=== PATIENT | male | born 1955 | race Caucasian/White ===

== ENCOUNTER 2025-08-21 10:57 | Emergency (ER) | payer OTHER, MEDICAID ==
[~2025-08-21] VITALS: Ht 162.6 cm; Wt 77.0 kg
--- NOTE | 2025-08-21 11:10 | Physician Documentation ---
History of Present Illness Chief Complaint: See Chief Complaint Stated Complaint: ABD PAIN HPI Very pleasant 70-year-old male that presents to the emergency department for evaluation of jaundice and significant weight gain times 3-4 weeks. Patient reports that he presented to his primary care provider's office today primary care provider sent him over to the emergency department for an evaluation of his gallbladder. Patient denies fever chills diarrhea but does report some nausea prior to eating events. Patient reports he gets a little bit shaky and naus eated if he does not eat regularly. Reports that he did have an episode of nausea after eating last night but denies any abdominal pain at this time. 70-year-old male no pertinent medical history presenting for 1 month of intermittent abdominal pain 20 lb weight loss and jaundice. He also reports itching in the evenings. He initially thought his abdominal pain was related to lactose intolerance. He stopped drinking milk and dairy in his abdominal pain has resolved. He however does have persistent nausea. He also endorses having diarrhea over the last month as well as dark urine which has been ongoing. No no history of cancer. No alcohol use. Nonsmoker. No history of IV drug use Medication Reconciliation Allergies: Coded Allergies: No Known Allergies (Unverified , 08/21/25) Scheduled Acyclovir (Acyclovir), 1 CAP PO 5XD, (Reported) Gabapentin (Gabapentin), 1 TAB PO QID, (Reported) Review of Systems All Other Systems at this time: Reviewed and Negative Constitutional: Denies: fever Respiratory: Denies: cough, shortness of breath Cardiovascular: Denies: chest pain Gastrointestinal: Reports: abdomen distended, abdominal pain, nausea, diarrhea; Denies: vomiting, constipated, melena, hematemesis, hematochezia, rectal bleeding Genitourinary: Denies: burning, discharge, dysuria Neurological: Denies: headache Integumentary: Reports: itching; Denies: rash Physical Exam Vital Signs: Temperature: 98.5, Source: Temporal, Heart Rate: 53, Respiratory Rate: 18, BP: 169/111, Pulse Oximetry: 100, Weight: 77.000 Oxygen Flow Rate: 0 Physical Exam Well-appearing no acute distress Moist mucous membranes Pulmonary clear to auscultation bilaterally Cardiac no murmur Abdomen soft nontender positive hepatomegaly no guarding no rebound Skin jaundiced Neuro awake alert oriented Progress Results/Orders Reviewed/noted all lab results: Yes Results/Orders Vital Signs 08/21/25 11:01 Temp 98.5 Pulse 53 Resp 18 B/P (MAP) 169/111 Pulse Ox 100 O2 Flow Rate 0 Medical Decision Making Additional information obtaine: N/A Findings Patient presents with painless jaundice. No leukocytosis no fever no tenderness on exam. Admitted to the hospitalist for further management Differential Dx:Considerations: AAA, Angina/NH, Other, N/A Departure Disposition: ADMITTED INPATIENT Admitted to Inpatient Unit: to hospitalist Impression: Primary Impression: Painless jaundice Referrals: NO PRIMARY CARE PROVIDER (PCP) Signature Scribe Signature: na Attestation: DWIGHT Arana Aug 21, 2025 11:10 JADEN PAUL MD Aug 21, 2025 13:05
[2025-08-21 12:10] LABS: MEAN PLATELET VOLUME 10.3 FL (7.4-10.4); RED CELL DISTRIBUTION WIDTH 15.2 % (11.5-14.5)
[2025-08-21 12:23] LABS: CREATININE 0.53 MG/DL (0.60-1.10); TOTAL CARBON DIOXIDE 24.2 MMOL/L (24-32); eCRCL 112 ML/MIN; eGFR > 90 ML/MIN
[2025-08-21 12:41] LABS: LEUKOCYTE ESTERASE ,URINE NEGATIVE (Neg); NITRITES, URINE NEGATIVE (Neg); OCCULT BLOOD,URINE NEGATIVE (Neg)
[2025-08-21 12:56] LABS: UA COLLECTION TYPE NON-SPECIFIED
[2025-08-21 12:57] LABS: CAL OXALATE CRYSTALS 2+ /HPF (NEGATIVE); MUCUS STRANDS NONE SEEN /LPF (Neg); SQUAMOUS EPITHELIAL CELL,UR NONE SEEN /LPF (FEW)
[2025-08-21 13:40] LABS: EOSINOPHILS % (MANUAL) 5.0 % (0-6); LYMPHOCYTES % (MANUAL) 7.0 % (21-51); MONOCYTES % (MANUAL) 13.0 % (2-12); NEUTROPHILS % (MANUAL) 75.0 % (42-75)
[2025-08-21 13:41] LABS: PLATELET ESTIMATE NORMAL
--- NOTE | 2025-08-21 14:13 | RADIOLOGY REPORT ---
Procedure: US ULTRASOUND OF ABDOMEN [facility] Study Date and Requested Time: 08/21/2025 01:37 PM History: abdominal pain Comparison: None Technique: Multiple high resolution stallworth-scale images obtained of the right upper quadrant of the abdomen with color Doppler for evaluation of blood flow and vascularity as indicated. Findings: Liver measures 19 cmin length, with homogenous echotexture and normal contours. No evidence of focal hepatic lesions. Mild dilatation of the intrahepatic ducts. Common bile duct is distended measuring up to 1.8 cm. Sludge within the gallbladder. Otherwise, The gallbladder is unremarkable with no evidence of abnormal wall thickening, gallstones, or pericholecystic fluid. Negative sonographic Hyde's sign. Pancreas is obscured by bowel gas Right kidney measures 10.8 cm in length, with normal contours, echotexture, and cortical thickness. No evidence of calculi, cystic or solid renal lesions. Mild pelviectasis. Partially visualized inferior vena cava unremarkable. Impression: Intra and extrahepatic biliary ductal dilatation with the common bile duct measuring up to 1.8 cm. MRCP is recommended for further evaluation. Sludge within the gallbladder. Otherwise, the gallbladder is unremarkable. Mild hepatomegaly Pancreas is obscured by bowel gas.
[2025-08-21] MEDS ORDERED: GABA-1405 PO (15:07)
[2025-08-21] MEDS ORDERED: ACYC-53 PO (15:07)
--- NOTE | 2025-08-21 21:11 | RADIOLOGY REPORT ---
CLINICAL HISTORY: Increased bilirubin, duct dilatation TECHNIQUE: MRI and MRCP of the abdomen was performed without gadolinium. 3D reconstructed images were created under concurrent radiologist supervision and archived on the PACS system. COMPARISON: None FINDINGS: The spleen, adrenal glands, and kidneys are unremarkable. There is severe intrahepatic and extrahepatic biliary ductal dilatation with the common duct measuring up to 14 mm. The gallbladder is distended with small amount of sludge and mild wall thickening. There is diffuse pancreatic ductal dilatation measuring 9 mm. There is a cutoff of the common duct and pancreatic duct at the pancreatic head, where it masses suspected. The abdominal aorta is normal course and caliber. No enlarged lymph node is seen. No free fluid is present. IMPRESSION: Severe pancreatic and biliary ductal dilatation with distention of the gallbladder. The pancreatic and biliary ducts abruptly cut off at the pancreatic head, where a malignant mass is suspected. This study is not designed to adequately assess for a mass. Further workup is recommended. Recommend pancrea tic CT or MRI with and without IV contrast for further evaluation. Another option if available is EUS with tissue sampling.
[2025-08-22] MEDS: CefTRIAXone/D5W-Rocephin 1gm 50 ML IV ONE (05:54)
[2025-08-22] MEDS: ondansetron/PF 4mg/2ml inj IV ONE ×2 (08:11→17:37)
[2025-08-22 10:28] VITALS: TEMP 98.1
[2025-08-22] MEDS: HYDROcodone/acetaminophen 5mg/325mg tablet PO ONE (14:35)
[2025-08-22 16:52] VITALS: BP 148/105
[2025-08-22 18:16] VITALS: PULSE 63; RESP 15; O2SAT 98
== END 2025-08-22 18:15 | disposition critical access hospital (66) ==
LOC: ER 10:58 → ED HOLD 14:16 → UNDOADMIN 14:16 → UNDODISIN 18:30 → ER 08-22 18:15
DX: R17 Unspecified jaundice (principal); Z79.899 Other long term (current) drug therapy
CPT/HCPCS: 36415; 74181; 76700; 80053; 81001; 83690; 85007; 85025; 96365; 96375; 96376; 99285; J0696; J1200; J2405; G0378

== ENCOUNTER 2025-08-31 11:29 | Emergency (ER) | payer OTHER, MEDICAID ==
[~2025-08-31] VITALS: Ht 162.6 cm; Wt 75.8 kg
[~2025-08-31 11:29] MED LIST: ACYC-53 PO; GABA-1405 PO
--- NOTE | 2025-08-31 12:14 | ELECTROCARDIOGRAPH REPORT ---
[facility] Test Date: 2025-08-31 Test Time: 12:10:52 Pat Name: DANIEL GAMBOA Department: [facility]- Patient ID: [facility]-[id number] Room: Gender: M Cloth Worker: : 1955 Requested By: DANIEL GUZMÁN Order Number: [id number] Reading MD: Dr. PACO Busch Measurements Intervals [place] Rate: 75 P: 44 OR: 138 QRS: -14 QRSD: 107 T: 26 QT: 385 QTc: 430 Interpretive Statements Sinus rhythm Low voltage, precordial leads RSR' in V1 or V2, right VCD or RVH Electronically Signed On 08-31-2025 19:17:[address] PACO Busch Please click the below link to view image of tracing.
[2025-08-31 12:16] LABS: MEAN PLATELET VOLUME 8.7 FL (7.4-10.4); RED CELL DISTRIBUTION WIDTH 13.8 % (11.5-14.5)
--- NOTE | 2025-08-31 12:25 | RADIOLOGY REPORT ---
EXAM: DI CHEST,SINGLE VIEW HISTORY: CP COMPARISON: None TECHNIQUE: Portable upright AP view of the chest was performed. FINDINGS: There is mild scarring in the left lung base. No other infiltrates, pneumothorax, or pulmonary edema. The heart is borderline enlarged. There is an old fracture of the left clavicle. There is cystic changes of the left humeral head. There is thoracic degenerative disc disease. IMPRESSION: No acute intrathoracic process.
[2025-08-31 12:32] LABS: CREATININE 1.05 MG/DL (0.60-1.10); TOTAL CARBON DIOXIDE 28.5 MMOL/L (24-32); eCRCL 56 ML/MIN; eGFR 70 ML/MIN
--- NOTE | 2025-08-31 12:37 | Physician Documentation ---
History of Present Illness ~ Chief Complaint: Hypotension Stated Complaint: HYPOTENSION Time Seen by MD: 11:58 Source: patient, family Mode of Arrival: POV Exam Limitations: no limitations HPI 70-year-old male who is here due to generalized weakness in reporting that yesterday around 3:00 p.m. in the afternoon when he sat up after taking a nap that he "was slurring his words and just appeared really tired." Patient then reportedly laid back down yesterday and slept until 7pm. He is on percocet since having a stent placed due to a mass that he was informed yesterday is pancreatic cancer. The stent was placed down at [facility]. He has been on Percocet several times in the past for different things in his never had any drowsiness or side effects. He states his primary care provider called him this morning and informed him that his sodium was low on labs that were done two days ago. Patient is not on any diuretic. He states he has been eating and drinking a lot more than he has been since having the sent place as he states I actually feel a lot better since I have gotten this stent place. He does have some abdominal pain which he attributes to the stent but states this is gradually improving. Medication Reconciliation Allergies: Coded Allergies: latex (Verified Allergy, Mild, 08/31/25) Scheduled Acyclovir (Acyclovir), 1 CAP PO 5XD, (Reported) Gabapentin (Gabapentin), 1 TAB PO QID, (Reported) Past Medical History Past Medical History: *CANCER* (pancreatic cancer) Past Surgical History: other (pancreatic stent ) Lives with: Spouse Lives In: Home Review of Systems All Other Systems at this time: Reviewed and Negative Physical Exam Vital Signs: Temperature: 97.6, Heart Rate: 76, Respiratory Rate: 16, BP: 97/60, Pulse Oximetry: 99, Weight: 75.800 Oxygen Flow Rate: 0 Physical Exam GENERAL: Alert, no acute distress. HEENT: NCAT, EOMI, PERRL, normal oropharynx, moist oral mucosa. NECK: Supple, trachea midline. CARDIAC: Regular rate and rhythm, no murmurs, rubs, or gallops. Equal distal pulses. No lower extremity edema, cap refill less than 2 seconds. RESPIRATORY: Equal breath sounds, clear to auscultation bilaterally, no respiratory distress. GASTROINTESTINAL: Non distended, soft, nontender, No guarding or rebound. MUSCULOSKELETAL: Normal range of motion, nontender, no swelling. Normal gait. NEUROLOGICAL: Awake, alert, and oriented x 3. cn 2-12 intact. SKIN: Warm/dry, +jaundice. PSYCH: Alert and appropriate. Affect congruent with mood. Speech is clear. Good eye contact. Progress Results/Orders Results/Orders Orders - SHIELA NIX Ct Head (08/31/25 13:39) Culture Blood (08/31/25 12:28) Completed Orders - SHIELA NIX Normal Saline 1000ml (0.9% Sodium Chlori (08/31/25 12:30) Ct Head (08/31/25 13:39) Ammonia (08/31/25 12:28) Procalcitonin (08/31/25 12:28) LA (08/31/25 13:13) Normal Saline 1000ml (0.9% Sodium Chlori (08/31/25 14:35) Vital Signs 08/31/25 08/31/25 08/31/25 08/31/25 11:38 12:09 12:13 13:07 Temp 97.6 Pulse 76 77 Resp 18 16 20 B/P (MAP) 97/60 97/62 (74) Pulse Ox 99 99 97 O2 Delivery Room Air* O2 Flow Rate 0 0 0 FiO2 08/31/25 16:05 Temp 98.9 Pulse 85 Resp 27 B/P (MAP) 110/60 Pulse Ox 99 Laboratory Tests Test 08/31/25 11:59 08/31/25 12:03 08/31/25 13:16 White Blood Count 15.7 H Red Blood Count 3.25 L Hemoglobin 10.8 L Hematocrit 32.0 L Mean Corpuscular Volume 98.4 H Mean Corpuscular Hemoglobin 33.3 H Mean Corpuscular Hemoglobin Concent 33.9 Red Cell Distribution Width 13.8 Platelet Count 332 Mean Platelet Volume 8.7 Neutrophils (%) (Auto) 90.3 H Lymphocytes (%) (Auto) 3.8 L Monocytes (%) (Auto) 5.8 Eosinophils (%) (Auto) 0 Basophils (%) (Auto) 0.1 Neutrophils # (Auto) 14.1 H Lymphocytes # (Auto) 0.6 L Monocytes # (Auto) 0.9 Eosinophils # (Auto) 0.0 Basophils # (Auto) 0.0 CBC Comment Sodium Level 131 L Potassium Level 4.1 Chloride Level 95 L Carbon Dioxide Level 28.5 Anion Gap 8 Blood Urea Nitrogen 17 Creatinine 1.05 Estimated GFR/1.73 m2 70 BUN/Creatinine Ratio 16.2 Glucose Level 106 H Calcium Level 8.8 Total Bilirubin 8.0 H Direct Bilirubin 6.7 H Aspartate Amino Transf (AST/SGOT) 243 H Alanine Aminotransferase (ALT/SGPT) 291 H Alkaline Phosphatase 529 H Troponin I High Sensitivity 30 Total Protein 6.6 Albumin 2.5 L Globulin 4.1 Albumin/Globulin Ratio 0.6 L Chemistry Comments Lactic Acid Level 1.6 Procalcitonin 16.24 H Ammonia < 10 L Microbiology Date/Time Source Procedure Growth Status 08/31/25 13:16 Blood Blood Culture - Preliminary Positive Culture Resulted Medical Decision Making Additional information obtaine: old records Findings previous ER visit Differential Dx:Considerations: Include: dehydration, Delirium Tr., DKA, encephalopathy, hypercalcemia, HHNC, hypoglycemia, hypernatremia, hyponatremia, hypoxia, postictal, closed head injury, C-spine injury, CVA, mass lesion, subarachnoid hemorrhage, drug overdose, encephalopathy, ETOH intoxication, medication toxicity, infection - meningitis, infection - sepsis, infection - UTI, heart failure, renal failure, respiratory failure, hyperthermia, hypothermia, other Additional Information Patient is not ill he states he has been eating the best that he has eaten in several weeks since getting the stent placed. He denies abdominal pain. He denies fever, chills. The main reason for coming here was due to concern about his speech yesterday when he woke up from a nap. Patient's head CT was normal. Patient's only current complaint is "feeling very sleepy." We discussed at this juncture doing at CT of his abdomen to look for infection due to elevated white count and his low blood pressure which can be a sign of serious infection but given the fact that he denies feeling sick he states he would like to go home. Patient will follow up with his PCP next week Departure Time of Disposition: 15:02 Disposition: 01 HOME / SELF CARE / HOMELESS Impression: Primary Impression: Painless jaundice Additional Impressions: Hypotension Qualified Codes: I95.0 - Idiopathic hypotension Pancreatic mass Condition: Stable Discharge Instructions: General Discharge Instructions Additional Instructions: Follow up with your primary care provider next week. We discussed admission and evaluation due to the elevated white count and your low blood pressure as low blood pressure with an elevated white count can indicate an infection however you denied feeling ill and thus we mutually agreed that doing a CT scan at this time to search for a source of infection did not make sense. If you experience any symptoms of illness such as fever, chills, nausea, vomiting, increasing abdominal pain return to the ER immediately. Referrals: NO PRIMARY CARE PROVIDER (PCP) Education Educated: Patient Educated regarding: diagnosis, treatment, need for follow up Signature Scribe Signature: x Attestation: SHIELA Dominguez Aug 31, 2025 12:37
[2025-08-31] MEDS: normal saline 1000ML IV soln IVB ONE ×2 (12:43→15:00)
--- NOTE | 2025-08-31 13:57 | RADIOLOGY REPORT ---
CLINICAL HISTORY: change in mental status since yesterday TECHNIQUE: Helical scanning was performed of the head from the skull base to the vertex. Multiplanar reconstructions were performed. This exam was performed according to our departmental dose optimization program. Up-to-date CT equipment and radiation dose reduction techniques are utilized as appropriate. CTDI 56 DLP 976 COMPARISON: None FINDINGS: There is no evidence for acute intracranial hemorrhage, acute ischemic changes, mass, mass effect, or extra-axial fluid collection. There is no hydrocephalus or midline shift. There is no effacement of the cerebral sulci and basal subarachnoid cisterns. The stallworth-white matter differentiation is well maintained. The imaged paranasal sinuses are clear. IMPRESSION: NO ACUTE INTRACRANIAL ABNORMALITY SEEN.
[2025-08-31 16:05] VITALS: BP 110/60; PULSE 85; RESP 27; TEMP 98.9; O2SAT 99
== END 2025-08-31 16:06 | disposition home or self-care (01) ==
LOC: ER 11:29
DX: I95.9 Hypotension, unspecified (principal); K86.89 Other specified diseases of pancreas; R17 Unspecified jaundice; Z91.040 Latex allergy status; Z79.899 Other long term (current) drug therapy
CPT/HCPCS: 36415; 70450; 71045; 80048; 80076; 82140; 83605; 84145; 84484; 85025; 87040; 87077; 87186; 93005; 96360; 96361; 99285; J7030